=== PATIENT | female | born 1970 | race African-American/Black ===

== ENCOUNTER → 2021-08-20 | Outpatient (CLI) | payer BC ==
[~2021-08-20] MED LIST: NORVASC5 MG PO
== END ==
LOC: LAB 05:31
PROVIDERS: ATTEND Student in an Organized Health Care Education/Training Program
DX: Z01.812 Encounter for preprocedural laboratory examination (principal); Z20.822 Contact with and (suspected) exposure to COVID-19

== ENCOUNTER → 2021-08-24 | Outpatient (CLI) | payer BC ==
--- NOTE | 2021-08-27 10:08 | PATH ---
[facility] [address] [place] [address] PATHOLOGY RPT PROCEDURE Name: KESHAWN VALIENTE Room #: REG JOVANNI Hi.#: [id number] Admission: 08/24/21 Date of : 66 Discharge: Report #: [id number] Path Case #: [id number] [facility] Accession Number: [id number] . 01 Material submitted: . PART A: cecum - CECAL POLYP PART B: sigmoid colon - SIGMOID POLYP . 01 Clinical history: . COLONOSCOPY COLON CANCER SCREENING POLYPS . 02 Diagnosis: A. Colonic mucosa, cecal polyp, biopsy: - Tubular adenoma. . B. Colonic mucosa, sigmoid polyp, biopsy: - Tubular adenoma. (SCA:joy; 08/26/2021) QMS 08/26/2021 1142 Local . 02 Electronically signed: . Fredis Prince DO, Pathologist NPI- [id number] . 01 Gross description: . A. The specimen is received in formalin, labeled "Keshawn Valiente, cecal polyp". Received are multiple segments of pale avila tissue ranging in size from 0.3-1.3 cm in maximum dimension. The specimen is submitted entirely in cassettes A1 through A3. . B. The specimen is received in formalin, labeled "Keshawn Valiente, sigmoid polyp". Received are four segments of red-brown tissue ranging in size from 0.9 x 0.7 x 0.3 to 1.8 x 1.4 x 1.0 cm in greatest dimensions. The surgical margins of the larger two segments are inked and the segments are sectioned respectively. The smaller two segments are submitted intact in cassette B1. The third segment is bisected and entirely submitted in cassette B2. The larger segment is quadrisected and entirely submitted in cassettes B3 through B4. Due to the nature of the larger segment, fragmentation has occurred upon sectioning. (CAA; 08/25/2021) QAC/QA 08/25/2021 1040 Local . 02 Pathologist provided ICD-10: D12.0, D12.5 . 02 [place] [address] PATHOLOGY RPT PROCEDURE Name: KESHAWN VALIENTE Room #: REG JOVANNI Carson#: [id number] Admission: 08/24/21 Date of : 66 Discharge: Report #: [id number] Path Case #: [id number] [facility] . [id number], [id number] Specimen Comment: A courtesy copy of this report has been sent to [phone] Specimen Comment: Report sent to Specimen Comment: A duplicate report has been generated due to demographic updates. Performed at: 01 [facility] [address] [id number] MD Adi Cisneros MD Phone: [phone] Performed at: [address] [id number] MD Marques Carlos MD Phone: [phone]
== END | disposition home or self-care (01) ==
LOC: GI
PROVIDERS: ATTEND Internal Medicine Gastroenterology
DX: Z12.11 Encounter for screening for malignant neoplasm of colon (principal); D12.0 Benign neoplasm of cecum; D12.5 Benign neoplasm of sigmoid colon; I11.0 Hypertensive heart disease with heart failure; I50.9 Heart failure, unspecified; Z98.890 Other specified postprocedural states; Z79.899 Other long term (current) drug therapy; Z91.041 Radiographic dye allergy status; Z87.891 Personal history of nicotine dependence
CPT/HCPCS: 62110; 62900